=== PATIENT | female | born 1975 | race African-American/Black ===

== ENCOUNTER 2017-06-18 10:21 | Emergency (ER) | payer MEDICAID, OTHER ==
[~2017-06-18] VITALS: Ht 182.9 cm; Wt 114.0 kg
[~2017-06-18 10:21] MED LIST: ALBU6.7H9; AMLO10TA4
[2017-06-18 11:19] LABS: CLARITY URINE CLOUDY (CLEAR); COLOR URINE DARK YELLOW (YELLOW); KETONES URINE TRACE (NEGATIVE); LEUKOCYTE ESTERASE URINE NEGATIVE (NEGATIVE); NITRITE URINE NEGATIVE (NEGATIVE); OCCULT BLOOD URINE NEGATIVE (NEGATIVE); PH URINE 5.5 (4.5-8.0); PROTEIN URINE 1+ (NEGATIVE); SPECIFIC GRAVITY URINE 1.033 (1.005-1.030)
[2017-06-18 15:02] VITALS: BP 135/83
== END 2017-06-18 15:05 | disposition home or self-care (01) ==
LOC: ER 10:58
DX: N83.209 Unspecified ovarian cyst, unspecified side (principal); J45.909 Unspecified asthma, uncomplicated; I10 Essential (primary) hypertension; Z88.6 Allergy status to analgesic agent; Z88.8 Allergy status to other drugs, medicaments and biological substances
CPT/HCPCS: 81001; 81025; 87210; 94640; 99284